=== PATIENT | female | born 1955 | race Two or more races ===

== ENCOUNTER 2016-10-29 09:51 | Emergency (ER) | payer MEDICAID ==
[~2016-10-29] VITALS: Ht 149.9 cm; Wt 61.2 kg
[2016-10-29 09:54] VITALS: BP 142/71
== END 2016-10-29 10:23 | disposition home or self-care (01) ==
LOC: ER 09:54
DX: Z48.02 Encounter for removal of sutures (principal)
CPT/HCPCS: 99281; A4606; Z7610; Z7502

== ENCOUNTER 2018-02-06 20:23 | Emergency (ER) | payer MEDICAID ==
[~2018-02-06] VITALS: Ht 144.8 cm; Wt 113.4 kg
--- NOTE | 2018-02-06 22:00 | NUR ---
PATIENT TO ED DT SLIPPED AND FELL ON THE GROUND, LAST WEEK MONDAY.; C/O CP RADIATING TO THE BACK, PATIENT INNOT DISTRESS. SKIN IS WARM TO TOUCH AND NON DIAPHORETIC. PATIENT IS AFEBRILE. VSS
[2018-02-06 22:58] LABS: BASOPHILS % (AUTO) 0.5 % (0.0-2.0); EOSINOPHILS % (AUTO) 2.2 % (0.0-6.0); HEMATOCRIT 40 % (33-45); HEMOGLOBIN 13.4 g/dL (11.5-14.8); LYMPHOCYTES % (AUTO) 30.2 % (20.0-44.0); MEAN CORPUSCULAR HGB CONC 33 g/dl (31.0-36.0); MEAN CORPUSCULAR VOLUME 83 fL (82-100); MONOCYTES # (AUTO) 0.6 /CMM (0.1-1.30); MONOCYTES % (AUTO) 6.5 % (2.0-12.0); NEUTROPHILS % (AUTO) 60.6 % (43.0-81.0); PLATELET COUNT (AUTO) 321 /CMM (150-450); RDW COEFFICIENT OF VARIATION 13.6 (11.5-15.0); RED BLOOD CELL COUNT(AUTO) 4.88 MIL/uL (4.0-5.2); WHITE BLOOD COUNT (AUTO) 9.8 K/uL (4.3-11.0)
[2018-02-06] MEDS ORDERED: ONDANSETRON 4 MG TAB.RAPDIS ONE (22:59)
[2018-02-06] MEDS ORDERED: ACETAMINOPHEN ES 500 MG TABLET ONE (22:59)
[2018-02-06] MEDS ORDERED: oxyCODONE/APAP (5/325 MG) 1 UDTAB TABLET ONE (22:59)
[2018-02-06] MEDS ORDERED: ASPIRIN 81 MG TAB.CHEW ONE (23:00)
[2018-02-06] MEDS: ASPIRIN 81 MG TAB.CHEW PO ONE (23:07)
[2018-02-06] MEDS: ONDANSETRON 4 MG TAB.RAPDIS SL ONE (23:07)
[2018-02-06] MEDS: oxyCODONE/APAP (5/325 MG) 1 UDTAB TABLET PO ONE (23:07)
[2018-02-06] MEDS: ACETAMINOPHEN ES 500 MG TABLET PO ONE (23:07)
[2018-02-06 23:09] LABS: CALCIUM, SERUM 9.3 mg/dL (8.5-10.1); CARBON DIOXIDE 28 mmol/L (21-32); CHLORIDE 99 mmol/L (98-107); CREATININE 0.6 mg/dL (0.6-1.3); GLUCOSE 324 mg/dL (74-106); POTASSIUM 3.9 mmol/L (3.5-5.1); SODIUM SERUM 135 mmol/L (136-145); UREA NITROGEN, BLOOD 13 mg/dL (7-18)
[2018-02-06 23:17] LABS: TROPONIN I < 0.017 ng/mL (0.00-0.056)
[2018-02-06 23:21] LABS: ALANINE AMINOTRANSFERASE 86 U/L (12-78); ALBUMIN 3.3 g/dL (3.4-5.0); ALKALINE PHOSPHATASE 140 U/L (46-116); ASPARTATE AMINOTRANSFERASE 33 U/L (15-37); B-TYPE NATRIURETIC PEPTIDE 37 PG/ML (0-125); BILIRUBIN,DIRECT 0.1 mg/dL (0.0-0.2); BILIRUBIN,TOTAL 0.5 mg/dL (0.2-1.0); TOTAL PROTEIN, SERUM 7.6 g/dL (6.4-8.2)
--- NOTE | 2018-02-07 03:17 | NUR ---
ASSUMED D/C CARE ONLY AT THIS TIME ON BEHALF OF PRIMARY NURSE KAYLYNN. PT AWAKE TO TALKING TO FAMILY MEMBER. DENIES ANY NEW OR WORSENING SX'S AT THIS TIME. STATES "I FEEL A LOT BETTER". NO S/S OF ADVERSE REACTIONS NOTED AT THIS TIME. NON DIAPHORETIC. RESP EVEN AND UNLABORED. Patient discharged to home in stable condition. Written and verbal after care instructions given. Patient verbalizes understanding of instruction. Ambulatory with a steady gait accompanied by family member. Instructions in maltese and to f/u with PMD as directed.
[2018-02-07 03:20] VITALS: BP 138/84
== END 2018-02-07 03:21 | disposition home or self-care (01) ==
LOC: ER 20:26
DX: S22.20XA Unspecified fracture of sternum, initial encounter for closed fracture (principal); S22.31XA Fracture of one rib, right side, initial encounter for closed fracture; W01.0XXA Fall on same level from slipping, tripping and stumbling without subsequent striking against object, initial encounter; Y93.89 Activity, other specified; Y92.89 Other specified places as the place of occurrence of the external cause; Y99.8 Other external cause status
CPT/HCPCS: 36415; 71045-TC; 71120-TC; 73030-TC; 80048-TC; 80076-TC; 83880; 84484-TC; 85025-TC; A4606; Q0162; Z7610